=== PATIENT | female | born 1970 ===

== ENCOUNTER 2024-09-20 23:36 | Observation (INO) | payer OTHER, SELFPAY ==
[2024-09-20 14:05] VITALS: BP 148/83
--- NOTE | 2024-09-20 14:37 | ED.GENMED ---
History of Present Illness
<Collin Gregory PA-C - Last Filed: 09/25/24 06:26>
General
Chief Complaint: Musculo-Skeletal Complaint
Source: patient and family
Time Seen by Provider: 09/20/24 14:20
History of Present Illness
History of Present Illness:
53-year-old female with past medical history of metastatic breast cancer, on daily oral chemotherapy, presenting to the emergency department for evaluation after she had an accidental fall on August 14 stating she was in the garden and tripped over a
loose brick causing her to fall forward injuring her foot and ankle. Patient was seen at [facility] where she reports she had x-rays done of this area which did not show any fracture, was placed in a postop shoe and while being taught
how to use crutches excellently fell backwards onto her right hip/lower back which has led to increased pain, was given a walker to be discharged home with but states has been having increased pain to the right lower extremity and since that fall
reports she has had inability to plantarflex, dorsiflex the right foot/ankle and has increased numbness/paresthesia from the knee down. Patient notes a previous history of a hip fracture which she was told was due to the metastases and also has
questionable spinal metastases, was apparently told by an orthopedist that she would need a hip replacement a year ago but states never went through with this and was told that eventually her hip ended up healing. She denies any fevers or
infectious symptoms. No other concerns presently.
Past History
<Collin Gregory PA-C - Last Filed: 09/25/24 06:26>
Past History
ED Past Medical History: Cancer
ED Past Surgical History: Orthopedic (Previous corpectomy in 2018) and Tonsilectomy
Social History
Tobacco: Non-smoker
Alcohol: None
Drug: None
Personal: Single
Living: alone
Review of Systems
<Collin Gregory PA-C - Last Filed: 09/25/24 06:26>
Review of Systems
All Other Systems: ROS reviewed and negative except as documented in HPI and ROS
Phy Exam
<Collin Gregory PA-C - Last Filed: 09/25/24 06:26>
Physical Exam
Physical Exam:
GENERAL: Alert , in no apparent distress
EYE: Clear conjunctiva
NECK: Supple
ENT: o/p clr, mmm.
CARDIAC: Regular rate and rhythm .
LUNGS: Clear breath sounds bilaterally, no acute respiratory distress, no wheezes/rales/rhonchi
NEUROLOGICAL: Alert and oriented, Patient is unable to plantarflex or dorsiflex the right foot/ankle. She is able to flex and extend her knee and extend at her right hip but this is weaker than compared to the left lower extremity. Sensation
reportedly diminished in the entirety of the right lower extremity compared to the left. Patellar deep tendon reflexes are intact and equal bilaterally. Achilles deep tendon reflex is diminished on the right compared to the left. Patient unable
to extend her right EHL.
SKIN: Warm and dry, skin intact.
MUSCULOSKELETAL: Bilateral ankle edema, well perfused. Easily palpable pedal and tibial pulse. Cap refill less than 2 seconds. Compartments soft.
PSYCH: Normal and appropriate interaction.
Scores
<Collin Gregory PA-C - Last Filed: 09/25/24 06:26>
Heart Failure Risk
Heart Failure Risk Score: Not Applicable
Heart Score for Chest Pain Patients
STEMI patient?: Not applicable
Withdrawal Assessment of Alcohol
Withdrawal Assessment Completed?: Not applicable
Course
<Collin Gregory PA-C - Last Filed: 09/25/24 06:26>
Orders/Labs/Results
Orders:
Orders
09/20/24 14:35
CT Lumbar Spine W/o Iv Contras Urgent
Comment:
Reason For Exam: fall increased right hip pain, cancer hx, LROM RLE
CT Pelvis W/o Iv Contrast Urgent
Comment:
Reason For Exam: fall increased right hip pain, cancer hx
US Periph Venous LOWER Ext Kendall Urgent
Comment:
Reason For Exam: edema, cancer hx, previous DVT
09/20/24 14:36
Test Result ONCE
09/20/24 14:50
Complete Blood Count/With Diff Urgent
Comprehensive Metabolic Panel Urgent
HCG, Serum Qualitative Screen Urgent
09/20/24 15:09
MR Thoracic Spine W/o & With Urgent
Comment:
Reason For Exam: RLE weakness, hx mets, hx corpectomy
Recent pill cam endoscopy?: No
09/20/24 22:16
Oxycodone [Roxicodone] 40 mg PO NOW STA
09/20/24 23:00
Flush (0.9% Sodium Chloride) [Flush (Nss)] See Dose Instructions IV PER PROTOCOL
09/20/24 23:16
Alprazolam [Xanax] 1 mg PO NOW STA
09/20/24 23:24
Admit/Transfer Patient As Directed
Co-Sign Provider:
Level of Care: Observation services
Assign to:: Medical/Surgical
Physician / Group: Victor Manuel
Diagnosis: right foot weakness
PRN Pain Medication Management As Directed
May give lesser potent ordered pain med per pt: Yes
preference::
Protocol:: Medication orders for pain may be administered in a
manner that supports deferring to patient preference
when the pt is:
- Requesting an ordered lesser potent pain medication.
Least to most potent pain medications are defined
as: acetaminophen < NSAID < tramadol < opioids
(morphine, oxycodone, hydromorphone).
- Requesting a lesser dose of the same medication IF
ORDERED.
- Requesting a less intrusive route of administration
if both routes are prescribed by the provider (PO <
IV).
09/20/24 23:26
Code Status As Directed
Resuscitation Status: Full Code
09/21/24 00:58
Bisacodyl [Dulcolax] 10 mg RECTAL [id number] PRN
Diphenhydramine [Benadryl] 50 mg PO Q8HPRN PRN
Docusate W/Senna [Senokot-S] 1 tablet PO BIDPRN PRN
HYDROmorphone [Dilaudid] 1 mg IV Q4HPRN PRN
Ibuprofen [Motrin] 600 mg PO Q6HPRN PRN
Ondansetron Injectable [Zofran] 4 mg IV Q6HPRN PRN
Oxycodone [Roxicodone] 20 mg PO Q6HPRN PRN
Polyethylene Glycol Powder [Miralax] 17 grams PO DAILYPRN PRN
09/21/24 00:58
Consult Notification Routine
Specialty to Notify: Neurology
Date consulting provider notified: 09/21/24
Time consulting provider notified: 11:25
Notified:: Service
NEUROLOGY CONSULT Routine
Consulting Provider: Dianne Valentine
Was physician already notified: No
Reason for consult: right foot drop of unclear etiology
VTE Contraindication Routine
VTE Mechanical Device Contraindication: Medical Contraindication
Pharmocologic Contraindication: Medical Contraindication
MR Lumbar W/o & With Contrast Routine
Comment:
Reason For Exam: R ft drop, ?mets, w/ cord comp vs radicular
Recent pill cam endoscopy?: No
Activity As Directed
Activity Level: With Assistance
Vital Signs As Directed
Frequency: Per unit guidelines
Pulse Ox/spot Check [RESP] Routine
Quantity: 1
09/21/24 08:00
Alprazolam [Xanax] 1 mg PO TID
Apixaban [Eliquis] 5 mg PO BID
Cyclobenzaprine HCl [Flexeril] 10 mg PO TID
Metoprolol [Lopressor] 100 mg PO BID
Oxycodone Controlled Release [Oxycontin (Controlled Release)] 40 mg PO BID
09/21/24 Dinner
Regular
At Your Request: Full Participation
Abnormal Lab Results
09/20/24
14:50
RBC 3.86 L 10^6/uL
(4.20-5.40)
Hct 36.0 L %
(37.0-47.0)
MCH 31.1 H pg
(27.0-31.0)
RDW 15.7 H %
(11.5-14.5)
Monocytes % 10.8 H %
(1.7-9.3)
BUN 20 H mg/dl
(7-17)
Total Protein 6.0 L g/dl
(6.3-8.2)
09/20/24 14:50
09/20/24 14:50
Vital Signs
Initial and Last Documented VS:
Initial Vital Signs
Temp Pulse Resp BP Pulse Ox
97.9 F 115 16 148/83 99
09/20/24 14:05 09/20/24 14:05 09/20/24 14:05 09/20/24 14:05 09/20/24 14:05
Last Documented Vital Signs
Temp Pulse Resp BP Pulse Ox
98.1 F 110 24 149/87 95
09/22/24 15:30 09/22/24 15:30 09/22/24 15:30 09/22/24 15:30 09/22/24 15:30
<Trell Shafer MD - Last Filed: 09/20/24 15:11>
Orders/Labs/Results
Orders:
Orders
09/20/24 14:35
CT Lumbar Spine W/o Iv Contras Urgent
Comment:
Reason For Exam: fall increased right hip pain, cancer hx, LROM RLE
CT Pelvis W/o Iv Contrast Urgent
Comment:
Reason For Exam: fall increased right hip pain, cancer hx
US Periph Venous LOWER Ext Kendall Urgent
Comment:
Reason For Exam: edema, cancer hx, previous DVT
09/20/24 14:36
Test Result ONCE
09/20/24 14:50
Complete Blood Count/With Diff Urgent
Comprehensive Metabolic Panel Urgent
HCG, Serum Qualitative Screen Urgent
09/20/24 15:09
MR Thoracic Spine W/o & With Urgent
Comment:
Reason For Exam: RLE weakness, hx mets, hx corpectomy
Recent pill cam endoscopy?: No
09/20/24 22:16
Oxycodone [Roxicodone] 40 mg PO NOW STA
09/20/24 23:00
Flush (0.9% Sodium Chloride) [Flush (Nss)] See Dose Instructions IV PER PROTOCOL
09/20/24 23:16
Alprazolam [Xanax] 1 mg PO NOW STA
09/20/24 23:24
Admit/Transfer Patient As Directed
Co-Sign Provider:
Level of Care: Observation services
Assign to:: Medical/Surgical
Physician / Group: Victor Manuel
Diagnosis: right foot weakness
PRN Pain Medication Management As Directed
May give lesser potent ordered pain med per pt: Yes
preference::
Protocol:: Medication orders for pain may be administered in a
manner that supports deferring to patient preference
when the pt is:
- Requesting an ordered lesser potent pain medication.
Least to most potent pain medications are defined
as: acetaminophen < NSAID < tramadol < opioids
(morphine, oxycodone, hydromorphone).
- Requesting a lesser dose of the same medication IF
ORDERED.
- Requesting a less intrusive route of administration
if both routes are prescribed by the provider (PO <
IV).
09/20/24 23:26
Code Status As Directed
Resuscitation Status: Full Code
09/21/24 00:58
Bisacodyl [Dulcolax] 10 mg RECTAL [id number] PRN
Diphenhydramine [Benadryl] 50 mg PO Q8HPRN PRN
Docusate W/Senna [Senokot-S] 1 tablet PO BIDPRN PRN
HYDROmorphone [Dilaudid] 1 mg IV Q4HPRN PRN
Ibuprofen [Motrin] 600 mg PO Q6HPRN PRN
Ondansetron Injectable [Zofran] 4 mg IV Q6HPRN PRN
Oxycodone [Roxicodone] 20 mg PO Q6HPRN PRN
Polyethylene Glycol Powder [Miralax] 17 grams PO DAILYPRN PRN
09/21/24 00:58
Consult Notification Routine
Specialty to Notify: Neurology
Date consulting provider notified: 09/21/24
Time consulting provider notified: 11:25
Notified:: Service
NEUROLOGY CONSULT Routine
Consulting Provider: Dianne Valentine
Was physician already notified: No
Reason for consult: right foot drop of unclear etiology
VTE Contraindication Routine
VTE Mechanical Device Contraindication: Medical Contraindication
Pharmocologic Contraindication: Medical Contraindication
MR Lumbar W/o & With Contrast Routine
Comment:
Reason For Exam: R ft drop, ?mets, w/ cord comp vs radicular
Recent pill cam endoscopy?: No
Activity As Directed
Activity Level: With Assistance
Vital Signs As Directed
Frequency: Per unit guidelines
Pulse Ox/spot Check [RESP] Routine
Quantity: 1
09/21/24 08:00
Alprazolam [Xanax] 1 mg PO TID
Apixaban [Eliquis] 5 mg PO BID
Cyclobenzaprine HCl [Flexeril] 10 mg PO TID
Metoprolol [Lopressor] 100 mg PO BID
Oxycodone Controlled Release [Oxycontin (Controlled Release)] 40 mg PO BID
09/21/24 Dinner
Regular
At Your Request: Full Participation
Abnormal Lab Results
09/20/24
14:50
RBC 3.86 L 10^6/uL
(4.20-5.40)
Hct 36.0 L %
(37.0-47.0)
MCH 31.1 H pg
(27.0-31.0)
RDW 15.7 H %
(11.5-14.5)
Monocytes % 10.8 H %
(1.7-9.3)
BUN 20 H mg/dl
(7-17)
Total Protein 6.0 L g/dl
(6.3-8.2)
09/20/24 14:50
09/20/24 14:50
Vital Signs
Initial and Last Documented VS:
Initial Vital Signs
Temp Pulse Resp BP Pulse Ox
97.9 F 115 16 148/83 99
09/20/24 14:05 09/20/24 14:05 09/20/24 14:05 09/20/24 14:05 09/20/24 14:05
Last Documented Vital Signs
Temp Pulse Resp BP Pulse Ox
98.1 F 110 24 149/87 95
09/22/24 15:30 09/22/24 15:30 09/22/24 15:30 09/22/24 15:30 09/22/24 15:30
<Collin Gregory PA-C - Last Filed: 09/25/24 06:26>
MDM/Problems Addressed
Differential Diagnosis Includes:
Peroneal nerve entrapment, spinal metastases, DVT, hip/pelvic fracture,, spinal fracture, less concern for acute infectious etiology
MDM/Problems Addressed:
53-year-old female presenting to the emergency department for evaluation of worsening pain to her right lower extremity, now unable to plantarflex or dorsiflex her foot. Patient maintains that this only started after she fell at [facility]. She
does have diminished Achilles deep tendon reflexes on the right, unable to extend her EHL. Given her history of breast cancer with known metastases I do have some concern that there could be areas within the spinal cord being impinged upon due to
masses and patient reports that she believes she did have spinal metastases on previous imaging. Patient mildly tachycardic here, somewhat anxious. She does have bilateral lower extremity edema so will obtain ultrasound to rule out DVT especially
given her cancer history and known history of DVT. CT of the lumbar spine and pelvis ordered to rule out fracture. Disposition pending.
Chronic conditions affecting care: Cancer
<Collin Gregory PA-C - Last Filed: 09/25/24 06:26>
*Pulse Oximetry
Patient hypoxic: no
*Critical Care Note
Total Time (30-74mins, 75-104mins- exclusive of procedures): Not Applicable
<Collin Gregory PA-C - Last Filed: 09/25/24 06:26>
Patient Management
Discussion with other providers: Hospitalist and [employer] Sales Representative And Assessor
Escalation/DeEscalation of care consider admission/obs:
CT and MRI findings noted. Patient with clearly persistent symptoms. Plan to admit for further imaging/evaluation. May need PT/OT as patient is fall risk. Hospitalist team accepts for continued evaluation and treatment
ED Attending Note
<Collin Gregory PA-C - Last Filed: 09/25/24 06:26>
-
Portions of this chart may have been created with voice recognition software.� Occasional wrong word or��sound alike� substitutions may have occurred due to the inherent limitations of voice recognition software.
<Trell Shafer MD - Last Filed: 09/20/24 15:11>
ED Attending Note
Patient seen and examined by attending physician: Yes
I performed the substantive portion of visit, reviewed & personally made and approve the management plan that is documented in note by myself or ZEFERINO.: Yes
ED Attending Note:
53-year-old female with known metastatic breast CA to bone presents with weakness and pain to the right lower extremity. Started 1 week ago when she tripped and fell causing right foot and ankle pain. While getting crutches situated the following
day at another emergency department she fell backwards causing some hip and low back pain. Since then she has had progressive weakness in the right lower extremity. Denies other extremity weakness upper extremity weakness neck pain headache visual
issues speech issues or other complaints
On exam patient is nontoxic in no distress. Speech is normal. Cranial nerves II through XII intact. No drift to the upper extremities good continuous improvement analyst. Left lower extremity within normal limits with good strength plantar dorsiflexion of the foot.
Right lower extremity has some swelling and tenderness to the right foot and ankle. There is inability to dorsiflex the right ankle. Plantarflexion is relatively good although slightly decreased. She has some decreased ability to flex at the hip
but is able to straight leg raise.
Impression weakness of the right lower extremity. Appears to be mostly a foot drop although there is some proximal weakness. Known breast CA with metastatic disease. CT scans ordered. We discussed with neurology we will also ask for stat MRI
thoracic spine. Workup in progress
Discharge Plan
Departure
Patient Disposition: Admit
Date of Disposition: 09/20/24
Time of Disposition: 21:56
Presentation/result/management discussed w/ accepting MD/DO: Hospitalist
Discharge Problem:
Foot drop, right, Breast cancer metastasized to bone
Interventions
Interventions:
*Risk Screen - Suicide Last Done: 09/20/24 14:05
*General Assessment Last Done: 09/20/24 14:05
*Neglect/Abuse Screening Last Done: 09/20/24 21:10
*ED- Fall Risk Assessment Last Done: 09/20/24 14:05
*Nursing Disposition Last Done: 09/21/24 00:48
ED-Musculoskeletal Assessment Last Done: 09/20/24 22:30
Discharge Date and Time
Discharge Date/Time: 09/21/24 00:48
[2024-09-20 15:05] LABS: % Basophils 0.2 % (0-2); % Eosinophils 3.3 % (0-6); % Immature Granulocytes 0.3 % (0-0.5); % Lymphocytes 26.3 % (20.5-51.1); % Monocytes 10.8 % (1.7-9.3); % Neutrophils 59.1 % (42.2-75.2); Absolute Eosinophils 0.2 10^3/uL (0-0.7); Absolute Lymphocytes 1.5 10^3/uL (1.2-3.4); Absolute Monocytes 0.6 10^3/uL (0.1-0.6); Absolute Neutrophils 3.4 10^3/uL (1.4-6.5); Mean Corp Hgb Conc. 33.3 g/dL (33.0-37.0); Mean Corpuscular Hgb 31.1 pg (27.0-31.0); Mean Corpuscular Volume 93.3 fL (81.0-99.0); Mean Platelet Volume 9.1 fL (7.4-10.4); Nucleated Red Blood Cells % 0 %; Platelet Count 185 10^3/uL (130-400); Red Blood Cell Count 3.86 10^6/uL (4.20-5.40); Red Cell Dist. Width 15.7 % (11.5-14.5); White Blood Cell Count 5.8 10^3/uL (4.8-10.8)
[2024-09-20 15:19] LABS: HCG, Serum Qualitative Screen Negative
[2024-09-20 15:29] LABS: ALT (SGPT) 15 U/L (0-35); AST (SGOT) 28 U/L (14-36); Albumin 3.5 g/dl (3.5-5.0); Alkaline Phosphatase 87 U/L (38-126); Blood Urea Nitrogen 20 mg/dl (7-17); Calcium 9.3 mg/dl (8.4-10.2); Carbon Dioxide 30 mmol/L (22-30); Chloride 107 mmol/L (98-107); Glucose 85 mg/dl (70-99); Potassium 4.3 mmol/L (3.5-5.1); Sodium 141 mmol/L (135-145); Total Bilirubin 0.4 mg/dl (0.2-1.3); eGFR > 60.00
[2024-09-20 21:09] VITALS: BP 149/79; BMI 30.8
[2024-09-20 22:24] VITALS: BP 129/74
[2024-09-20] MEDS: ROXICODONE 40 MG PO (22:26)
--- NOTE | 2024-09-20 22:53 | HPS.HSE ---
Family Physician
-
Family Physician: * NONE
Chief Complaint
-
Right leg weakness
History of Present Illness
This is a 53-year-old with metastatic breast cancer, hypertension, chronic pain, chronic back pain status post thoracic corpectomy who presents to the emergency department after recurrent falls at home with right lower extremity weakness.
Patient reported that she had been fine up until about 1 week ago when she started having falls. She said she essentially kept tripping over her right leg. She seems to be having difficulty lifting up the legs at the ankle. She was seen at
outside hospital. While she was being fitted for crutches she fell backwards again. Since getting home she has been having recurrent falls. She had falls and injured her back and has ongoing back pain as well. She denies any urinary symptoms.
She denies any bladder symptoms or bowel symptoms.
In the emergency department she was afebrile, blood pressure was 129/34 with a pulse of 109 and she was satting 99% on room air.
CBC was unremarkable. Electrolytes BUN/creatinine were all normal.
She has multiple imaging studies done. Ultimately she has an MRI of the T-spine which shows a T10 mets but no cord involvement. CT of the pelvis and lumbar spine shows a right proximal femoral metastasis.
Medical History
Past Medical History
Past Medical History: Reports Cancer (breast ca) and HTN
Past Surgical History: Reports Orthopedic (Thoracic corpectomy) and Tonsilectomy
Social History
Tobacco: Non-smoker
Alcohol: None
Drug: None
Family History
Family History: Not pertinent
Allergies / Home Medications
Allergies reflects when Allergies were last updated in [employer].
Home Medications with original date entered in [employer]
Allergy/Medication List:
Allergies
Allergy/AdvReac Type Severity Reaction Status Date / Time
acetaminophen Allergy Rash Verified 09/20/24 22:14
[From Tylenol-Codeine #3]
codeine Allergy Rash Verified 05/09/25 22:14
[From Tylenol-Codeine #3]
Home Medications
alprazolam 1 mg tablet 1 mg PO TID 09/20/24
apixaban 5 mg tablet (Eliquis) 5 mg PO BID 09/20/24
capecitabine 500 mg tablet 1,500 mg PO BID 09/20/24
cyclobenzaprine 10 mg tablet 10 mg PO TID 09/20/24
diphenhydramine HCl 25 mg capsule (Benadryl) 50 mg PO Q8H PRN congestion 09/20/24
ibuprofen 600 mg tablet 600 mg PO Q6H PRN pain 09/20/24
metoprolol tartrate 100 mg tablet 100 mg PO BID 09/20/24
ondansetron HCl 8 mg tablet 8 mg PO Q8H PRN nausea 09/20/24
oxycodone 20 mg tablet 20 mg PO .Q4-6HPRN PRN pain 09/20/24
oxycodone 40 mg tablet,crush resistant,extended release 12 hr (OxyContin) 40 mg PO BID 09/20/24
Review of Systems
-
History Source: Patient
Constitutional: Reports No Symptoms
EENT: Reports No Symptoms
Respiratory: Reports No Symptoms
Cardiac: Reports No Symptoms
Abdomen/GI: Reports No Symptoms
: Reports No Symptoms
Musculoskeletal: Reports No Symptoms
Neurological: Reports Weakness (Right lower extremity weakness)
Endocrine: Reports No Symptoms
Hematologic/Lymphatic: Reports No Symptoms
Psych: Reports No Symptoms
Physical Exam
Vital Signs
Vital Signs
Temp Pulse Resp BP Pulse Ox
97.9 F 109 16 129/74 99
09/20/24 14:05 09/20/24 22:24 09/20/24 22:24 09/20/24 22:24 09/20/24 22:24
Physical Exam
General: Well Developed, Well Nourished, No Apparent Distress and Comfortable
HEENT: NormoCephalic, Anicteric, Moist mucous membranes and Atraumatic
Respiratory: Clear
Cardiac: S1/S2 and Regular Rhythm
Breast: Deferred by me
GI: Soft, Non Tender, Non Distended and Normal Bowel Sounds
Rectal: Deferred by Provider
Genito-urinary: Deferred by me
Musculoskeletal: No Clubbing, No Cyanosis and Edema, Right Upper Extremity (1 + ankle edema)
Neuro: AO x 3, Cranial Nerves Intact and Other (weakness on dorsiflexion of the right foot 2/5, hypersensitivity on right plantar surface. ); No Slurred Speech, Facial Droop or Tremors
Hematologic/Lymphatic: No Lymphadenopathy
Psych: Calm
Laboratory Results
-
09/20/24 14:50
09/20/24 14:50
Laboratory Results
Total Bilirubin 0.4 mg/dl (0.2-1.3) 09/20/24 14:50
AST 28 U/L (14-36) 09/20/24 14:50
ALT 15 U/L (0-35) 09/20/24 14:50
Alkaline Phosphatase 87 U/L (38-126) 09/20/24 14:50
Data Reviewed
-
CT Scan: Report Reviewed by me
MRI: Report Reviewed by me
Lab Data: Labs Reviewed by me
Old Records: Reviewed
Impression/Plan
-
IMPRESSION:
53 y.o with metastatic breast CA who presents to ED with recurrent falls. Has right foot weakness on dorsiflexion with normal sensation. No alarm signs. Imaging shows bony mets to T10 spine and right proximal femur mets. No cord involvement.
Suspect the foot drop is possibly from Lumbar radicular pathology. No alarm findings of bladder/bowel dysfunction, or anesthesia.
PLAN:
1. Right foot drop
- admit tomed/surg observation
- mri lumbar spine
- pain control
- neurology consult
- depending on findings may need neurosurg or neuroonc
- no indication for steroids at this time.
- PT eval
DVT PPX - on apixaban
Code status - full code
[2024-09-20] MEDS: XANAX 1 MG PO (23:23)
[2024-09-21 01:21] VITALS: BMI 30.7
[2024-09-21 01:22] VITALS: BP 137/69
--- NOTE | 2024-09-21 01:30 | PTCARENOTE ---
Received patient from ED via stretcher accompanied by ED PCT. Patient stood from stretcher to obtain weight x1 assist, typically uses RW at home. Ambulated to bed with RW and special shoe for R foot, stand by assist, gait steady but grabs for
furniture when not using RW, and leans forward. Educated patient on fall precautions and use of call qiu for any activity OOB. Nursing assessment completed and as documented. HR Tachy 120's but denies CP at this time. Call qiu within reach, box
lunch provided, oriented to room/facility, care ongoing.
[2024-09-21] MEDS: ROXICODONE 20 MG PO ×2 (02:13→12:06)
[2024-09-21] MEDS: OXYCONTIN (CONTROLLED RELEASE) 40 MG PO ×2 (07:15→19:29)
[2024-09-21] MEDS: FLEXERIL 10 MG PO ×3 (07:15→20:59)
[2024-09-21] MEDS: XANAX 1 MG PO ×3 (07:15→20:59)
[2024-09-21] MEDS: ELIQUIS 5 MG PO ×2 (07:15→19:29)
[2024-09-21 07:30] VITALS: BP 136/78
--- NOTE | 2024-09-21 08:06 | CON.NEURO ---
Consultation
Order
Date of Consultation: 09/21/24
Requesting Provider: Jorge Rush MD
Reason for Consult: Right foot drop
Neurology Consultation Note.
HPI: This is a 53-year-old woman who presented to [facility] on 09/20/2024 with motor deficits. According to the patient
She developed subacute painless right foot weakness and numbness with associated recurrent falls while gardening on 09/13/2024.
The patient was reportedly seen at [facility] in [place], [place] and was fitted with brace and walker.
The patient describes a gradual onset of tingling and numbness in her toes over the past 6-9 months, initially affecting her left foot, particularly the V digit. Following her recent fall, the right foot became progressively weaker and more numb.
The patient also experiences tingling and numbness in the bottom of her right foot, heel, and up to the mid-foot area.
Additionally, the patient reports intermittent numbness in her hands, specifically in her right IV finger and left thumb. She also mentions experiencing intermittent diplopia, particularly when she doesn't get enough sleep. A brain MRI performed 1-2
months ago for these vision changes was reportedly normal.
The patient's medical history is significant for left breast cancer diagnosed in 2018, treated with chemotherapy (including letrozole, leuprolide, and Ibrance) and radiation. She recently started a new chemotherapy medication but cannot recall its
name.
ER VS: 148/83, 115, afebrile
EKG: Pending
PDMP: Oxycontin Er 40 Mg 60 tablets filled in on 09/13/2024, alprazolam 1 mg 90 tablets filled in 01/2025, pregabalin 25 mg 60 capsules filled in 01/2025.
Labs: Normal WBCs, sodium, creatinine, bilirubin.
T-spine MRI w/wo gloria�1.4 cm enhancing metastasis within the left posterior aspect of the T10 vertebral body.
CT pelvis: L4-5, left foraminal protrusion continues to mild left-sided neural foraminal stenosis at this level and may impinge the traversing left L5 nerve root in the lateral recess at this level. At L5-S1, disc desiccation and bulge likely
impinges the bilateral traversing S1 nerve roots in the lateral recesses with mild spinal canal stenosis at this level.
PMH: Stage IV L breast CA(2018), HTN, GLORIA, chronic pain syndrome
PSH:thoracic corpectomy, tonsillectomy
SH: single, lives alone, former smoker, previously worked in [employer] work
FH: Mother�dementia in her late 70s,
All: Tylenol codeine No. 3
ROS: Positive for fatigue
HENT: Negative for ear pain, hearing loss, tinnitus and trouble swallowing.
Eyes: Positive for intermittent diplopia
Respiratory: Negative for cough, choking and shortness of breath.
Cardiovascular: Positive for leg edema
Gastrointestinal: Negative for abdominal pain and vomiting.
Endocrine: Negative. Negative for cold intolerance.
Genitourinary: Negative for dysuria, flank pain and urgency.
Musculoskeletal: Positive for chronic back pain
Skin: Negative for rash.
Allergic/Immunologic: Negative. Negative for immunocompromised state.
Neurological: Positive for imbalance, right foot weakness, paresthesias
Psychiatric/Behavioral: Positive for anxiety
General: Well developed. In no acute distress.
Cardio: Regular rate and rhythm without murmur. Extremities 1+ edema
Neuro:
Mental Status: Alert, oriented to person, place, and date. Normal attention and recall. Good fund of knowledge. Follows complex requests across the midline. Comprehension, naming, and repetition intact.
Cranial Nerves: Pupils are equally round and reactive to light. EOMs full. Visual herrera full to confrontation. No ptosis. No nystagmus. V1-V3 intact to light touch and pinprick bilaterally, symmetric. Face symmetric. Normal hearing AU. The
palate elevated well. SCMs and traps 5/5. Tongue midline. No dysarthria.
Motor: Normal bulk and tone. No pronator or arm drift. Strength 5/5 throughout except for right hip flexion 4 out of 5, knee extension 4 out of 5, dorsiflexion�0 out of 5, plantarflexion 3 out of 5, eversion�2 out of 5, eversion�2 out of 5. No
clonus.
Reflexes: 2+ throughout the upper extremities and knees. Limited exam of ankle jerks due to positioning/cooperation plantar responses flexor bilaterally.
Sensory: Reduced vibration at the toes
Coordination: No dysmetria or tremor.
Gait: deferred
Assessment and Plan:
I. Subacute sensorimotor polyneuropathy. Differential diagnosis includes toxic versus metabolic, less likely neoplastic.
II. Stage IV breast cancer
III. Ambulatory dysfunction
- Fall precautions
- NCS/EMG of BL LEs
- Polyneuropathy blood
- PT
-DVT prophylaxis.
I personally reviewed all radiology and labs along with past medical records pertinent to current medical problems. Total time spent in patient care is 60 minutes.
Thank you for allowing us to participate in the care of this patient. We will continue to follow. Please do not hesitate to contact us with any questions or concerns.
Subjective/Objective
Subjective Data
Date of Service: September 21, 2024
Objective Data
Vital Signs
Temp Pulse Resp BP Pulse Ox
36.6 C 108 18 136/78 97
09/21/24 07:30 09/21/24 07:30 09/21/24 07:30 09/21/24 07:30 09/21/24 07:30
Lab Results
09/20/24 14:50
09/20/24 14:50
Sodium 141 mmol/L (135-145) 09/20/24 14:50
Potassium 4.3 mmol/L (3.5-5.1) 09/20/24 14:50
BUN 20 mg/dl (7-17) H 09/20/24 14:50
Glucose 85 mg/dl (70-99) 09/20/24 14:50
Calcium 9.3 mg/dl (8.4-10.2) 09/20/24 14:50
Patient Allergies
acetaminophen [From Tylenol-Codeine #3] Allergy (Verified 09/20/24 22:14)
Rash
codeine [From Tylenol-Codeine #3] Allergy (Verified 09/20/24 22:14)
Rash
Medications
-
Active Medications
Generic Name Dose Route Start Last Admin
Trade Name Freq PRN Reason Stop Dose Admin
Alprazolam 1 mg 09/21/24 08:00 09/21/24 07:15
Alprazolam 1 Mg Tablet PO 10/19/24 07:59 1 mg
TID KIRSTEN Administration
Apixaban 5 mg 09/21/24 08:00 09/21/24 07:15
Apixaban (Eliquis) 5 Mg Tablet PO 10/19/24 07:59 5 mg
BID KIRSTEN Administration
Bisacodyl 10 mg 09/21/24 00:58
Bisacodyl 10 Mg Rectal Suppository RECTAL 10/19/24 00:57
[id number] PRN
constipation
Cyclobenzaprine HCl 10 mg 09/21/24 08:00 09/21/24 07:15
Cyclobenzaprine 10 Mg Tablet PO 10/19/24 07:59 10 mg
TID KIRSTEN Administration
Diphenhydramine HCl 50 mg 09/21/24 00:58
Diphenhydramine 25 Mg Capsule PO 10/19/24 00:57
Q8HPRN PRN
congestion
Hydromorphone HCl 1 mg 09/21/24 00:58
Hydromorphone 1 Mg/Ml Carpuject IV 10/05/24 00:57
Q4HPRN PRN
severe pain
Ibuprofen 600 mg 09/21/24 00:58
Ibuprofen 600 Mg Tablet PO 10/19/24 00:57
Q6HPRN PRN
mild pain/fever
Metoprolol Tartrate 100 mg 09/21/24 08:00
Metoprolol 100 Mg Regular Release Tablet PO 10/19/24 07:59
BID KIRSTEN
Ondansetron HCl 4 mg 09/21/24 00:58
Ondansetron 4 Mg/2 Ml Vial IV 10/19/24 00:57
Q6HPRN PRN
nausea and vomiting
Oxycodone HCl 40 mg 09/21/24 08:00 09/21/24 07:15
Oxycontin 40 Mg Controlled Release Tablet PO 10/05/24 07:59 40 mg
BID KIRSTEN Administration
Oxycodone HCl 20 mg 09/21/24 00:58 09/21/24 02:13
Oxycodone 10 Mg Regular Release Tablet PO 10/19/24 00:57 20 mg
Q6HPRN PRN Administration
moderate pain
Polyethylene Glycol 17 grams 09/21/24 00:58
Polyethylene Glycol Powder 17 Grams Packet PO 10/19/24 00:57
DAILYPRN PRN
constipation
Senna/Docusate Sodium 1 tablet 09/21/24 00:58
Docusate W/Senna (Yandy-Colace) Tablet PO 10/19/24 00:57
BIDPRN PRN
constipation
Sodium Chloride 0 flush 09/20/24 23:00
Sodium Chloride 0.9% (Flush) Syringe IV 10/18/24 22:59
PER PROTOCOL KIRSTEN
Home Medications
�Medication �Instructions �Recorded
alprazolam 1 mg tablet 1 mg PO TID 09/20/24
apixaban 5 mg tablet (Eliquis) 5 mg PO BID 09/20/24
capecitabine 500 mg tablet 1,500 mg PO BID 09/20/24
cyclobenzaprine 10 mg tablet 10 mg PO TID 09/20/24
diphenhydramine HCl 25 mg capsule 50 mg PO Q8H PRN congestion 09/20/24
(Benadryl)
ibuprofen 600 mg tablet 600 mg PO Q6H PRN pain 09/20/24
metoprolol tartrate 100 mg tablet 100 mg PO BID 09/20/24
ondansetron HCl 8 mg tablet 8 mg PO Q8H PRN nausea 09/20/24
oxycodone 20 mg tablet 20 mg PO .Q4-6HPRN PRN pain 09/20/24
oxycodone 40 mg tablet,crush 40 mg PO BID 09/20/24
resistant,extended release 12 hr
(OxyContin)
Vital Signs and Labs
-
Vital Signs and Labs:
Vital Signs
Temp Pulse Resp BP Pulse Ox
36.6 C 108 18 136/78 97
09/21/24 07:30 09/21/24 07:30 09/21/24 07:30 09/21/24 07:30 09/21/24 07:30
Lab Results
09/20/24 14:50
09/20/24 14:50
Sodium 141 mmol/L (135-145) 09/20/24 14:50
Potassium 4.3 mmol/L (3.5-5.1) 09/20/24 14:50
BUN 20 mg/dl (7-17) H 09/20/24 14:50
Glucose 85 mg/dl (70-99) 09/20/24 14:50
Calcium 9.3 mg/dl (8.4-10.2) 09/20/24 14:50
Medications
-
Medications:
Generic Name Dose Route Start Last Admin
Trade Name Freq PRN Reason Stop Dose Admin
Alprazolam 1 mg 09/21/24 08:00 09/21/24 07:15
Alprazolam 1 Mg Tablet PO 10/19/24 07:59 1 mg
TID KIRSTEN Administration
Apixaban 5 mg 09/21/24 08:00 09/21/24 07:15
Apixaban (Eliquis) 5 Mg Tablet PO 10/19/24 07:59 5 mg
BID KIRSTEN Administration
Bisacodyl 10 mg 09/21/24 00:58
Bisacodyl 10 Mg Rectal Suppository RECTAL 10/19/24 00:57
[id number] PRN
constipation
Cyclobenzaprine HCl 10 mg 09/21/24 08:00 09/21/24 07:15
Cyclobenzaprine 10 Mg Tablet PO 10/19/24 07:59 10 mg
TID KIRSTEN Administration
Diphenhydramine HCl 50 mg 09/21/24 00:58
Diphenhydramine 25 Mg Capsule PO 10/19/24 00:57
Q8HPRN PRN
congestion
Hydromorphone HCl 1 mg 09/21/24 00:58
Hydromorphone 1 Mg/Ml Carpuject IV 10/05/24 00:57
Q4HPRN PRN
severe pain
Ibuprofen 600 mg 09/21/24 00:58
Ibuprofen 600 Mg Tablet PO 10/19/24 00:57
Q6HPRN PRN
mild pain/fever
Metoprolol Tartrate 100 mg 09/21/24 08:00
Metoprolol 100 Mg Regular Release Tablet PO 10/19/24 07:59
BID KIRSTEN
Ondansetron HCl 4 mg 09/21/24 00:58
Ondansetron 4 Mg/2 Ml Vial IV 10/19/24 00:57
Q6HPRN PRN
nausea and vomiting
Oxycodone HCl 40 mg 09/21/24 08:00 09/21/24 07:15
Oxycontin 40 Mg Controlled Release Tablet PO 10/05/24 07:59 40 mg
BID KIRSTEN Administration
Oxycodone HCl 20 mg 09/21/24 00:58 09/21/24 02:13
Oxycodone 10 Mg Regular Release Tablet PO 10/19/24 00:57 20 mg
Q6HPRN PRN Administration
moderate pain
Polyethylene Glycol 17 grams 09/21/24 00:58
Polyethylene Glycol Powder 17 Grams Packet PO 10/19/24 00:57
DAILYPRN PRN
constipation
Senna/Docusate Sodium 1 tablet 09/21/24 00:58
Docusate W/Senna (Yandy-Colace) Tablet PO 10/19/24 00:57
BIDPRN PRN
constipation
Sodium Chloride 0 flush 09/20/24 23:00
Sodium Chloride 0.9% (Flush) Syringe IV 10/18/24 22:59
PER PROTOCOL KIRSTEN
Home Medications
-
Home Medications
alprazolam 1 mg tablet 1 mg PO TID 09/20/24
apixaban 5 mg tablet (Eliquis) 5 mg PO BID 09/20/24
capecitabine 500 mg tablet 1,500 mg PO BID 09/20/24
cyclobenzaprine 10 mg tablet 10 mg PO TID 09/20/24
diphenhydramine HCl 25 mg capsule (Benadryl) 50 mg PO Q8H PRN congestion 09/20/24
ibuprofen 600 mg tablet 600 mg PO Q6H PRN pain 09/20/24
metoprolol tartrate 100 mg tablet 100 mg PO BID 09/20/24
ondansetron HCl 8 mg tablet 8 mg PO Q8H PRN nausea 09/20/24
oxycodone 20 mg tablet 20 mg PO .Q4-6HPRN PRN pain 09/20/24
oxycodone 40 mg tablet,crush resistant,extended release 12 hr (OxyContin) 40 mg PO BID 09/20/24
--- NOTE | 2024-09-21 08:28 | W.PN.HOSP.TC ---
Today's Communication/Plan
-
See plan
Assessment / Plan
Assessment / Plan
Physical Exam
General: Not in acute distress
HEENT: Normocephalic, Moist mucous membranes
Respiratory: Clear to Auscultation Bilaterally
Cardiac: S1/S2 and Regular Rhythm
GI: Soft, Non Tender, Non Distended and Normal Bowel Sounds
Musculoskeletal: No Cyanosis and Edema, Right Lower Extremity (1 + ankle edema)
Neuro: AAO x 3, Cranial Nerves Intact and Other (weakness on dorsiflexion of the right foot 2/5, hypersensitivity on right plantar surface)
Psych: Calm
Assessment/Plan
53-year-old with metastatic breast cancer (diagnosed ~9 to ~10 years ago), hypertension, chronic pain, chronic back pain status post thoracic corpectomy (for spinal cord compression from cancer back in 2018 -- done at [facility] with
Quan Pham), right hip fracture from mets (which healed by itself without surgery) who presented to the emergency department after recurrent falls at home with right lower extremity weakness. Patient reported that she had been fine up until
about 1 week prior to presentation, when she started having falls. She said she essentially kept tripping over her right leg. She seems to be having difficulty lifting up the leg at the right ankle. She was seen at outside hospital. While she was
being fitted for crutches she fell backwards again. Since getting home she had been having recurrent falls. She had falls and injured her back and has ongoing back pain as well. She denied any urinary symptoms. She denied any bladder symptoms or
bowel symptoms e.g. she denied any bowel or urinary incontinence. In the emergency department, she was afebrile, blood pressure was 129/34 with a pulse of 109 and she was saturating 99% on room air. CBC was unremarkable. Electrolytes BUN/creatinine
were all normal. She had an MRI of the T-spine which showed a T10 mets but no cord involvement. CT of the pelvis and lumbar spine showed a right proximal femoral metastasis.
Right foot drop
Right Lower Extremity Weakness -- started prior to the falls, per patient
Recent Falls, with injury to Right Lower Back and Right Upper Buttock Region
- MRI T-Spine with metastasis at T10, but no spinal cord involvement
- CT of L-Sine on September 20, 2024 without gross evidence of significant spinal cored compression
- MRI L-Spine with small bony metastatic lesion at the S1 level, with no significant spinal cord compression
- Pain control
- Neurology consult
- Discussed with radiologist who recommended MRI spine and do CT of RT hip and RLE including RT foot with and without contrast, and if CT is negative, and since MR L-Spine negative/does not explain symptoms, then can do MRI RT hip and RLE
-Brain MRI unremarkable with no mets
- Discussed case with neurosurgery and on-call radiologist, per neurosurgeon can start Dexamethasone if clinically needed while waiting for MRI to get done and see if there�s any new compressive pathology, the steroids will not skew or cause false
negative in the MRI results, but will help with edema/inflammation --> Dexamethasone started, but will stop steroids since no cord compression on MRI L-Spine or T-Spine
- PT eval
- EMG as per neurology
- Consulted oncology -- paraneoplastic syndrome? effect of chemo?
DVT Prophylaxis: Apixaban
Code Status: Full Code
Anticipated Discharge: > 48 hours
Subjective/Interval History
-
Date of Service: September 21, 2024
Patient was seen and examined. She reported continued RLE weakness and right foot weakness with trying to bend the ankle upward.
Objective Data
-
Vital Signs:
Vital Signs
Temp Pulse Resp BP Pulse Ox
97.9 F 108 18 136/78 97
09/21/24 07:30 09/21/24 07:30 09/21/24 07:30 09/21/24 07:30 09/21/24 07:30
I&O
09/20/24 09/21/24 09/22/24
06:59 06:59 06:59
Intake Total 480 / 480
Balance 480 / 480
[2024-09-21] MEDS: LOPRESSOR 100 MG PO ×2 (08:34→19:29)
[2024-09-21] MEDS: DILAUDID 1 MG IV ×2 (10:21→20:50)
[2024-09-21] MEDS: DECADRON 10 MG IV (10:24)
[2024-09-21] MEDS: MOTRIN 600 MG PO (12:09)
--- NOTE | 2024-09-21 12:30 | CM ---
territory business manager reviewed patient's chart and met with patient and Patient was admitted under OBS, OBS letter completed and placed on chart. Patient lives alone in a 2 story home, is independent with adl's and uses a walker with ambulation, patient
drives.
Per patient she has been staying with her sister who is a nurse.
Pharmacy: [facility] in [place].
Plan; Jocelynn to return to home with sister when stable, no needs.
--- NOTE | 2024-09-21 13:31 | PTOTSP ---
Received orders for PT and reviewed chart. Awaiting results of MRI's looking for spinal mets and pathological fx's. Will hold PT at this time. May need neurosurgery consult.
[2024-09-21] MEDS: DECADRON 6 MG IV (15:01)
[2024-09-21 15:20] VITALS: BP 123/72
[2024-09-21 18:52] LABS: Erythrocyte Sed Rate 31 mm/hour (0-20)
[2024-09-21] MEDS: DILAUDID IV (19:30)
[2024-09-21 20:02] LABS: Folate 10.2 ng/ml (2.76-20); Vitamin B12 255 pg/ml (239-931)
[2024-09-21 23:05] VITALS: BP 147/79
[2024-09-22] MEDS: ELIQUIS 5 MG PO (07:23)
[2024-09-22] MEDS: FLEXERIL 10 MG PO (07:23)
[2024-09-22] MEDS: XANAX 1 MG PO (07:23)
[2024-09-22] MEDS: OXYCONTIN (CONTROLLED RELEASE) 40 MG PO (07:23)
[2024-09-22] MEDS: LOPRESSOR 100 MG PO (07:24)
--- NOTE | 2024-09-22 07:31 | W.PN.NEURO.1 ---
Today's Communication / Plan
-
.
Subjective/Objective
Subjective Data
Date of Service: September 22, 2024
Neurology follow-up note.
Ms. Reeder reports no change in her right leg strength since admission.
The patient states that her right foot weakness was first noticed in October 2021, at which time she went to the emergency room. However, she was discharged without a formal diagnosis or explanation for her symptoms. A CAT scan was performed at that
time, but no stroke was diagnosed. In addition to the right foot weakness, Ms. Reeder experiences tingling and numbness in her feet, which predated her recent brain MRI. She also reports hand numbness occurring around the same time as the foot
symptoms, approximately five years ago.
T-spine MRI w/wo michelle�1.4 cm enhancing metastasis within the left posterior aspect of the T10 vertebral body.
CT pelvis: L4-5 left foraminal protrusion continues to mild left-sided neural foraminal stenosis at this level and may impinge the traversing left L5 nerve root in the lateral recess at this level. At L5-S1, disc desiccation and bulge likely
impinges the bilateral traversing S1 nerve roots in the lateral recesses with mild spinal canal stenosis at this level.
Vitamin B12�255, ESR�31
PMH: Stage IV L breast CA(2018), HTN, MICHELLE, OCD, chronic pain syndrome
PSH:thoracic corpectomy, tonsillectomy
SH: single, lives alone, former smoker, previously worked in [employer] work
FH: Mother�dementia in her late 70s,
All: Tylenol codeine No. 3
ROS: Positive for fatigue
HENT: Negative for ear pain, hearing loss, tinnitus and trouble swallowing.
Eyes: Positive for intermittent diplopia
Respiratory: Negative for cough, choking and shortness of breath.
Cardiovascular: Positive for leg edema
Gastrointestinal: Negative for abdominal pain and vomiting.
Endocrine: Negative. Negative for cold intolerance.
Genitourinary: Negative for dysuria, flank pain and urgency.
Musculoskeletal: Positive for chronic back pain
Skin: Negative for rash.
Allergic/Immunologic: Negative. Negative for immunocompromised state.
Neurological: Positive for imbalance, right foot weakness, paresthesias
Psychiatric/Behavioral: Positive for anxiety
General: Well developed. In no acute distress.
Cardio: Regular rate and rhythm without murmur. Extremities 1+ edema
Neuro:
Mental Status: Alert, oriented to person, place, and date. Normal attention and recall. Good fund of knowledge. Follows complex requests across the midline. Comprehension, naming, and repetition intact.
Cranial Nerves: Pupils are equally round and reactive to light. EOMs full. Visual herrera full to confrontation. No ptosis. No nystagmus. V1-V3 intact to light touch and pinprick bilaterally, symmetric. Face symmetric. Normal hearing AU. The
palate elevated well. SCMs and traps 5/5. Tongue midline. No dysarthria.
Motor: Normal bulk and tone. No pronator or arm drift. Strength 5/5 throughout except for right hip flexion 4 out of 5, knee extension 4 out of 5, dorsiflexion�0 out of 5, plantarflexion 3 out of 5, eversion�2 out of 5, eversion�2 out of 5. No
clonus.
Reflexes: 2+ throughout the upper extremities and knees. Limited exam of ankle jerks due to positioning/cooperation plantar responses flexor bilaterally.
Sensory: Reduced vibration at the toes
Coordination: No dysmetria or tremor.
Gait: deferred
Assessment and Plan:
I. Subacute sensorimotor polyneuropathy. Differential diagnosis includes toxic versus metabolic, less likely neoplastic.
II. Stage IV breast cancer
III. Ambulatory dysfunction
- Fall precautions
- OP NCS/EMG of BL LEs
- Follow-up polyneuropathy blood work
- PT
-DVT prophylaxis.
- Outpatient neurology follow-up
- Please follow-up requested medical records from [facility].
- Please recall neurology services any questions or concerns
I personally reviewed all radiology and labs along with past medical records pertinent to current medical problems. Total time spent in patient care is 35 minutes.
Thank you for allowing us to participate in the care of this patient. Please do not hesitate to contact us with any questions or concerns.
Objective Data
Vital Signs
Temp Pulse Resp BP Pulse Ox
36.6 C 110 16 150/83 97
09/21/24 23:05 09/22/24 07:24 09/21/24 23:05 09/22/24 07:24 09/21/24 23:05
Lab Results
09/20/24 14:50
09/20/24 14:50
Sodium 141 mmol/L (135-145) 09/20/24 14:50
Potassium 4.3 mmol/L (3.5-5.1) 09/20/24 14:50
BUN 20 mg/dl (7-17) H 09/20/24 14:50
Glucose 85 mg/dl (70-99) 09/20/24 14:50
Calcium 9.3 mg/dl (8.4-10.2) 09/20/24 14:50
Vitamin B12 255 pg/ml (239-931) 09/21/24 18:21
Patient Allergies
acetaminophen [From Tylenol-Codeine #3] Allergy (Verified 09/20/24 22:14)
Rash
codeine [From Tylenol-Codeine #3] Allergy (Verified 09/20/24 22:14)
Rash
Vital Signs and Labs
-
Vital Signs and Labs:
Vital Signs
Temp Pulse Resp BP Pulse Ox
36.9 C 110 24 150/83 95
09/22/24 07:44 09/22/24 07:44 09/22/24 07:44 09/22/24 07:44 09/22/24 07:44
Lab Results
09/20/24 14:50
09/20/24 14:50
Sodium 141 mmol/L (135-145) 09/20/24 14:50
Potassium 4.3 mmol/L (3.5-5.1) 09/20/24 14:50
BUN 20 mg/dl (7-17) H 09/20/24 14:50
Glucose 85 mg/dl (70-99) 09/20/24 14:50
Calcium 9.3 mg/dl (8.4-10.2) 09/20/24 14:50
Vitamin B12 255 pg/ml (239-931) 09/21/24 18:21
Medications
-
Medications:
Generic Name Dose Route Start Last Admin
Trade Name Freq PRN Reason Stop Dose Admin
Alprazolam 1 mg 09/21/24 08:00 09/22/24 07:23
Alprazolam 1 Mg Tablet PO 10/19/24 07:59 1 mg
TID KIRSTEN Administration
Apixaban 5 mg 09/21/24 08:00 09/22/24 07:23
Apixaban (Eliquis) 5 Mg Tablet PO 10/19/24 07:59 5 mg
BID KIRSTEN Administration
Bisacodyl 10 mg 09/21/24 00:58
Bisacodyl 10 Mg Rectal Suppository RECTAL 10/19/24 00:57
[id number] PRN
constipation
Cyclobenzaprine HCl 10 mg 09/21/24 08:00 09/22/24 07:23
Cyclobenzaprine 10 Mg Tablet PO 10/19/24 07:59 10 mg
TID KIRSTEN Administration
Diphenhydramine HCl 50 mg 09/21/24 00:58
Diphenhydramine 25 Mg Capsule PO 10/19/24 00:57
Q8HPRN PRN
congestion
Hydromorphone HCl 1 mg 09/21/24 00:58 09/22/24 11:22
Hydromorphone 1 Mg/Ml Carpuject IV 10/05/24 00:57 1 mg
Q4HPRN PRN Administration
severe pain
Ibuprofen 600 mg 09/21/24 00:58 09/21/24 12:09
Ibuprofen 600 Mg Tablet PO 10/19/24 00:57 600 mg
Q6HPRN PRN Administration
mild pain/fever
Metoprolol Tartrate 100 mg 09/21/24 08:00 09/22/24 07:24
Metoprolol 100 Mg Regular Release Tablet PO 10/19/24 07:59 100 mg
BID KIRSTEN Administration
Ondansetron HCl 4 mg 09/21/24 00:58
Ondansetron 4 Mg/2 Ml Vial IV 10/19/24 00:57
Q6HPRN PRN
nausea and vomiting
Oxycodone HCl 40 mg 09/21/24 08:00 09/22/24 07:23
Oxycontin 40 Mg Controlled Release Tablet PO 10/05/24 07:59 40 mg
BID KIRSTEN Administration
Oxycodone HCl 20 mg 09/21/24 00:58 09/21/24 12:06
Oxycodone 10 Mg Regular Release Tablet PO 10/19/24 00:57 20 mg
Q6HPRN PRN Administration
moderate pain
Polyethylene Glycol 17 grams 09/21/24 00:58
Polyethylene Glycol Powder 17 Grams Packet PO 10/19/24 00:57
DAILYPRN PRN
constipation
Senna/Docusate Sodium 1 tablet 09/21/24 00:58
Docusate W/Senna (Yandy-Colace) Tablet PO 10/19/24 00:57
BIDPRN PRN
constipation
Sodium Chloride 0 flush 09/20/24 23:00
Sodium Chloride 0.9% (Flush) Syringe IV 10/18/24 22:59
PER PROTOCOL KIRSTEN
Home Medications
-
Home Medications
alprazolam 1 mg tablet 1 mg PO TID 09/20/24
apixaban 5 mg tablet (Eliquis) 5 mg PO BID 09/20/24
capecitabine 500 mg tablet 1,500 mg PO BID 09/20/24
cyclobenzaprine 10 mg tablet 10 mg PO TID 09/20/24
diphenhydramine HCl 25 mg capsule (Benadryl) 50 mg PO Q8H PRN congestion 09/20/24
ibuprofen 600 mg tablet 600 mg PO Q6H PRN pain 09/20/24
metoprolol tartrate 100 mg tablet 100 mg PO BID 09/20/24
ondansetron HCl 8 mg tablet 8 mg PO Q8H PRN nausea 09/20/24
oxycodone 20 mg tablet 20 mg PO .Q4-6HPRN PRN pain 09/20/24
oxycodone 40 mg tablet,crush resistant,extended release 12 hr (OxyContin) 40 mg PO BID 09/20/24
[2024-09-22 07:44] VITALS: BP 150/83
--- NOTE | 2024-09-22 08:36 | CON.ONC ---
Impression
Impression
Right lower extremity foot drop
Metastatic breast carcinoma
History of hip fracture
Balance impairment possibly associated with capecitabine
Plan
Plan
Right lower extremity x-ray rule out lesion compressing anterior tibial nerve following traumatic fall
If unremarkable consider MRI of the lower extremity
Unlikely that any of the findings on spinal MRI are causing foot drop
Assess radiologic and serologic previous scans for assessment of progressive disease on capecitabine
Patient reports recent PET scan with stability
Capecitabine and 5-fluorouracil derivatives can be associated with cerebellar and balance dysfunction
Offered outpatient follow-up with [facility] at any point if she should desire
Foot drop splint and PT evaluation
Would hold capecitabine while inpatient will discuss with her primary oncologist
Patient History
History of Present Illness
This is a 53-year-old with metastatic ER positive breast carcinoma reports being on capecitabine for the last 6 months with a recent stable PET CT scan, hypertension, chronic pain, chronic back pain. she has noticed right lower extremity weakness
with foot drop after falling in her garden post tripping over cobblestones. She states that the weakness began immediately following that impact. She downplays diffuse weakness. She denies any urinary symptoms. She denies any bladder symptoms
or bowel symptoms. Since hospitalization she has had extensive imaging with MRI including brain, T-spine and L-spine without clear etiology for foot drop. The patient has been on capecitabine reports no recent taxane use. Patient follows with
Moi Schroeder from [facility].
Past-Medical/Surgical History
Past Medical History
Past Medical History: Cancer (breast ca) and HTN
Past Surgical History: Orthopedic (Thoracic corpectomy) and Tonsilectomy
Social History
Tobacco: Non-smoker
Alcohol: None
Drug: None
Family History
Family History: Not pertinent
Patient Medication
�Medication �Instructions �Recorded �Confirmed �Last Taken �Type
alprazolam 1 mg tablet 1 mg PO TID 09/20/24 09/20/24 Unknown History
apixaban 5 mg tablet (Eliquis) 5 mg PO BID 09/20/24 09/20/24 Unknown History
capecitabine 500 mg tablet 1,500 mg PO BID 09/20/24 09/20/24 Unknown History
cyclobenzaprine 10 mg tablet 10 mg PO TID 09/20/24 09/20/24 Unknown History
diphenhydramine HCl 25 mg capsule 50 mg PO Q8H PRN congestion 09/20/24 09/20/24 Unknown History
(Benadryl)
ibuprofen 600 mg tablet 600 mg PO Q6H PRN pain 09/20/24 09/20/24 Unknown History
metoprolol tartrate 100 mg tablet 100 mg PO BID 09/20/24 09/20/24 Unknown History
ondansetron HCl 8 mg tablet 8 mg PO Q8H PRN nausea 09/20/24 09/20/24 Unknown History
oxycodone 20 mg tablet 20 mg PO .Q4-6HPRN PRN pain 09/20/24 09/20/24 Unknown History
oxycodone 40 mg tablet,crush 40 mg PO BID 09/20/24 09/20/24 Unknown History
resistant,extended release 12 hr
(OxyContin)
Active Medications
Generic Name Dose Route Start Last Admin
Trade Name Freq PRN Reason Stop Dose Admin
Alprazolam 1 mg 09/21/24 08:00 09/22/24 07:23
Alprazolam 1 Mg Tablet PO 10/19/24 07:59 1 mg
TID KIRSTEN Administration
Apixaban 5 mg 09/21/24 08:00 09/22/24 07:23
Apixaban (Eliquis) 5 Mg Tablet PO 10/19/24 07:59 5 mg
BID KIRSTEN Administration
Bisacodyl 10 mg 09/21/24 00:58
Bisacodyl 10 Mg Rectal Suppository RECTAL 10/19/24 00:57
[id number] PRN
constipation
Cyclobenzaprine HCl 10 mg 09/21/24 08:00 09/22/24 07:23
Cyclobenzaprine 10 Mg Tablet PO 10/19/24 07:59 10 mg
TID KIRSTEN Administration
Diphenhydramine HCl 50 mg 09/21/24 00:58
Diphenhydramine 25 Mg Capsule PO 10/19/24 00:57
Q8HPRN PRN
congestion
Hydromorphone HCl 1 mg 09/21/24 00:58 09/21/24 20:50
Hydromorphone 1 Mg/Ml Carpuject IV 10/05/24 00:57 1 mg
Q4HPRN PRN Administration
severe pain
Ibuprofen 600 mg 09/21/24 00:58 09/21/24 12:09
Ibuprofen 600 Mg Tablet PO 10/19/24 00:57 600 mg
Q6HPRN PRN Administration
mild pain/fever
Metoprolol Tartrate 100 mg 09/21/24 08:00 09/22/24 07:24
Metoprolol 100 Mg Regular Release Tablet PO 10/19/24 07:59 100 mg
BID KIRSTEN Administration
Ondansetron HCl 4 mg 09/21/24 00:58
Ondansetron 4 Mg/2 Ml Vial IV 10/19/24 00:57
Q6HPRN PRN
nausea and vomiting
Oxycodone HCl 40 mg 09/21/24 08:00 09/22/24 07:23
Oxycontin 40 Mg Controlled Release Tablet PO 10/05/24 07:59 40 mg
BID KIRSTEN Administration
Oxycodone HCl 20 mg 09/21/24 00:58 09/21/24 12:06
Oxycodone 10 Mg Regular Release Tablet PO 10/19/24 00:57 20 mg
Q6HPRN PRN Administration
moderate pain
Polyethylene Glycol 17 grams 09/21/24 00:58
Polyethylene Glycol Powder 17 Grams Packet PO 10/19/24 00:57
DAILYPRN PRN
constipation
Senna/Docusate Sodium 1 tablet 09/21/24 00:58
Docusate W/Senna (Yandy-Colace) Tablet PO 10/19/24 00:57
BIDPRN PRN
constipation
Sodium Chloride 0 flush 09/20/24 23:00
Sodium Chloride 0.9% (Flush) Syringe IV 10/18/24 22:59
PER PROTOCOL KIRSTEN
Review of Systems
-
12 point review of systems fails to elicit additional complaints other than those reviewed in the HPI. Has been tolerating capecitabine recently well although it has been known to cause balance impairment.
Physical Exam
-
Physical Exam
General: Well Developed, Well Nourished, No Apparent Distress and Comfortable
HEENT: Anicteric, Moist mucous membranes and Atraumatic
Respiratory: Clear
Cardiac: S1/S2 and Regular Rhythm
GI: Soft, Non Tender, Non Distended and Normal Bowel Sounds
Musculoskeletal: No Clubbing, No Cyanosis and Edema, Right Upper Extremity (1 + ankle edema)
Neuro: AO x 3, Cranial Nerves Intact and right foot dorsiflexion weakness consistent with foot drop
Hematologic/Lymphatic: No Lymphadenopathy
Psych: Calm
Labs
Lab Results
WBC 5.8 10^3/uL (4.8-10.8) 09/20/24 14:50
RBC 3.86 10^6/uL (4.20-5.40) L 09/20/24 14:50
Hgb 12.0 g/dL (12.0-16.0) 09/20/24 14:50
Hct 36.0 % (37.0-47.0) L 09/20/24 14:50
MCV 93.3 fL (81.0-99.0) 09/20/24 14:50
MCH 31.1 pg (27.0-31.0) H 09/20/24 14:50
MCHC 33.3 g/dL (33.0-37.0) 09/20/24 14:50
RDW 15.7 % (11.5-14.5) H 09/20/24 14:50
Plt Count 185 10^3/uL (130-400) 09/20/24 14:50
MPV 9.1 fL (7.4-10.4) 09/20/24 14:50
Abs Immat Gran (auto) 0.0 10^3/uL (0-0.05) 09/20/24 14:50
Absolute Neuts (auto) 3.4 10^3/uL (1.4-6.5) 09/20/24 14:50
Absolute Lymphs (auto) 1.5 10^3/uL (1.2-3.4) 09/20/24 14:50
Absolute Monos (auto) 0.6 10^3/uL (0.1-0.6) 09/20/24 14:50
Absolute Eos (auto) 0.2 10^3/uL (0-0.7) 09/20/24 14:50
Absolute Basos (auto) 0.0 10^3/uL (0-0.2) 09/20/24 14:50
Immature Gran % 0.3 % (0-0.5) 09/20/24 14:50
Neutrophils % 59.1 % (42.2-75.2) 09/20/24 14:50
Lymphocytes % 26.3 % (20.5-51.1) 09/20/24 14:50
Monocytes % 10.8 % (1.7-9.3) H 09/20/24 14:50
Eosinophils % 3.3 % (0-6) 09/20/24 14:50
Basophils % 0.2 % (0-2) 09/20/24 14:50
Creatinine 0.8 mg/dL (0.6-1.0) 09/20/24 14:50
Vital Signs
Vital Signs
Temp Pulse Resp BP Pulse Ox
98.5 F 110 24 150/83 95
09/22/24 07:44 09/22/24 07:44 09/22/24 07:44 09/22/24 07:44 09/22/24 07:44
[2024-09-22 09:14] VITALS: BP 149/87; PULSE 99; O2SAT 98
[2024-09-22 09:37] VITALS: BP 149/87; PULSE 102; O2SAT 99
[2024-09-22] MEDS: DILAUDID 1 MG IV (11:22)
--- NOTE | 2024-09-22 13:06 | W.PN.HOSP.TC ---
Addendum entered and electronically signed by Gallito Huertas MD 09/22/24 15:34:
Patient requested to be discharged today. We will respect her wish for her to be discharged today, but she will need very close outpatient follow-up with her neurosurgeon and oncologist.
Original Note:
Today's Communication/Plan
-
Discharge today
Assessment / Plan
Assessment / Plan
Physical Exam
General: Not in acute distress
HEENT: Normocephalic, Moist mucous membranes
Respiratory: Clear to Auscultation Bilaterally
Cardiac: S1/S2 and Regular Rhythm
GI: Soft, Non Tender, Non Distended and Normal Bowel Sounds
Musculoskeletal: No Cyanosis and Edema, Right Lower Extremity (1 + ankle edema)
Neuro: AAO x 3, Cranial Nerves Intact and Other (weakness on dorsiflexion of the right foot 2/5, hypersensitivity on right plantar surface)
Psych: Calm
Assessment/Plan
53-year-old with metastatic breast cancer (diagnosed ~9 to ~10 years ago), hypertension, chronic pain, chronic back pain status post thoracic corpectomy (for spinal cord compression from cancer back in 2018 -- done at [facility] with
Quan Pham), right hip fracture from mets (which healed by itself without surgery) who presented to the emergency department after recurrent falls at home with right lower extremity weakness. Patient reported that she had been fine up until
about 1 week prior to presentation, when she started having falls. She said she essentially kept tripping over her right leg. She seems to be having difficulty lifting up the leg at the right ankle. She was seen at outside hospital. While she was
being fitted for crutches she fell backwards again. Since getting home she had been having recurrent falls. She had falls and injured her back and has ongoing back pain as well. She denied any urinary symptoms. She denied any bladder symptoms or
bowel symptoms e.g. she denied any bowel or urinary incontinence. In the emergency department, she was afebrile, blood pressure was 129/34 with a pulse of 109 and she was saturating 99% on room air. CBC was unremarkable. Electrolytes BUN/creatinine
were all normal. She had an MRI of the T-spine which showed a T10 mets but no cord involvement. CT of the pelvis and lumbar spine showed a right proximal femoral metastasis.
Right foot drop
Right Lower Extremity Weakness -- started prior to the falls, per patient
Recent Falls, with injury to Right Lower Back and Right Upper Buttock Region
- MRI T-Spine with metastasis at T10, but no spinal cord involvement
- CT of L-Spine on September 20, 2024 without gross evidence of significant spinal cored compression
- MRI L-Spine with small bony metastatic lesion at the S1 level, with no significant spinal cord compression
- CT RLE without significant evidence of an etiology that could explain her compression
- Pain control
- Neurology consult
- Discussed with radiologist who recommended MRI spine and do CT of RT hip and RLE including RT foot with and without contrast, and if CT is negative, and since MR L-Spine negative/does not explain symptoms, then can do MRI RT hip and RLE
-Brain MRI unremarkable with no mets
- Discussed case with neurosurgery and on-call radiologist, per neurosurgeon can start Dexamethasone if clinically needed while waiting for MRI to get done and see if there�s any new compressive pathology, the steroids will not skew or cause false
negative in the MRI results, but will help with edema/inflammation --> Dexamethasone started, but stopped since steroids since no cord compression on MRI L-Spine or T-Spine
- Discussed case (via [place] [employer]) with neurology on 09/22/24 and neurologist mentioned there is no indication for steroids at this time and neurologist recommend any additional imaging
at this time; okay to discharge patient with outpatient follow-up
- PT
- Fall precautions
- Outpatient NCS/EMG of BL LEs
- Consulted oncology -- paraneoplastic syndrome? effect of chemo?
- Provide foot drop splint
- Patient will need to discuss (by September 23, 2024) with her neurosurgeon about MRI pelvis and lower extremities
- Patient will need to discuss (by September 23, 2024) with her oncologist about whether her cancer treatments are causing her symptoms
- No Driving
Constipation
-Bowel regimen
DVT Prophylaxis: Apixaban
Code Status: Full Code
More than 30 minutes spent in discharge including
Final examination of the patient
Summarizing hospital stay
Instructions for continuing care to all relevant caregivers
Preparation of discharge records, prescriptions, and referral forms
Total time spent (in minutes): 38
Anticipated Discharge: Today
Subjective/Interval History
-
Date of Service: September 22, 2024
Patient was seen and examined. She reported she was able to bend her right ankle upwards this morning for a short period of time but then lost that ability. She denied any new neurological symptoms or any other symptoms or complaints.
Objective Data
-
Vital Signs:
Vital Signs
Temp Pulse Resp BP Pulse Ox
98.5 F 110 24 150/83 95
09/22/24 07:44 09/22/24 07:44 09/22/24 07:44 09/22/24 07:44 09/22/24 07:44
I&O
09/21/24 09/22/24 09/23/24
06:59 06:59 06:59
Intake Total 480 / 480 1600 / 1600
Balance 480 / 480 1600 / 1600
--- NOTE | 2024-09-22 15:06 | PTCARENOTE ---
RN entered room to ask pt about request for medical records from her admission at [facility]. Upon entering room RN found pt sitting on the floor with sock on her hand, sweeping underneath other patients bed with her hand. Pt denied falling to
ground and said she lowered herself on to ground herself. Pt said she was cleaning room to prevent 'mice and roaches' from coming into room. Pt had asked staff prior to this for broom to sweep floor. Pt was told by PCT that EVS would be informed and
sweep the floor when able. Pt was asked by RN to not lower herself to floor again as it appeared that a fall had occurred despite pt denying fall from happening. Pt continued to slide herself across floor on her butt and sweep floor with sock on
hand. RN again asked pt to get up from floor and return to bed as this was not normal behavior. Pt became agitated and claimed this is what she does at home. Pt retuned to bed with assistance of PCT. Dr. Huertas notified about situation and aware.
Pt now requesting to be discharged and states she will leave AMA if not discharged. IV removed by RN. Plan to discharge pt home today.
[2024-09-22 15:30] VITALS: BP 149/87
--- NOTE | 2024-09-22 16:32 | PTCARENOTE ---
Discharge order written by Dr. Huertas. Pt requested to wait outside of hospital until ride was here. Pt refused to wait in room. Pt escorted via wheelchair by PCT to [facility] and helped onto bench. Pt denied any further assistance from
staff at this time.
[2024-09-23 12:38] LABS: Hepatitis C Antibody Negative (Negative)
== END 2024-09-22 16:35 | disposition home or self-care (01) ==
LOC: 1 ACUTE 23:36
PROVIDERS: Physician Assistant Medical; ADMITTING PHYSICIAN Internal Medicine; ATTENDING PHYSICIAN Hospitalist; CONSULT PHYSICIAN Internal Medicine Hematology & Oncology; CONSULT PHYSICIAN Psychiatry & Neurology Neurology; EMERGENCY PHYSICIAN Emergency Medicine
DX: R53.1 Weakness (principal); M25.569 Pain in unspecified knee; M54.9 Dorsalgia, unspecified; C50.911 Malignant neoplasm of unspecified site of right female breast; M21.371 Foot drop, right foot; K59.00 Constipation, unspecified; C79.51 Secondary malignant neoplasm of bone
CPT/HCPCS: 70553; 72131; 72157; 72158; 72192; 73702; 80053; 82607; 82746; 84155; 84165; 84425; 84703; 85025; 85652; 86140; 86803; 93970; 97116; 97163; 97166; 97535; 99285; A9575; G0378; Q9967